=== PATIENT | male | born 1975 | race Caucasian/White ===

== ENCOUNTER → 2021-11-16 | Outpatient (CLI) | payer OTHER ==
[~2021-11-16] MED LIST: MELO15TA23 PO
--- NOTE | 2021-11-16 11:40 | PDOC1 ---
INITIAL PAIN CONSULT DATE OF SERVICE: DOS: DATE: 11/16/21 TIME: 11:33 CHIEF COMPLAINT: Chief Complaint: Low back and right lower extremity pain HISTORY OF PRESENT ILLNESS: 46-year-old male presents history of pain low back and right lower extremity for many years not the rules of any 1 specific injury or accident but multiple injuries over the years athletic injuries as well as injuries at work patient reports pain in the low back now worse over the past year he has had chiropractic treatment here recently and is also undergoing physical therapy currently which is helpful but only slightly patient reports pain is better for a day or 2 after the treatments and then he is back at baseline patient reports pain across the low back rating the right lower extremity posterior gluteus lateral thigh anterior thigh medial thigh medial lower leg and into the great toe on the right side patient reports is across the low back bilaterally and into the right leg described as constant sharp stabbing throbbing shooting tingling with numbness in the leg aching and cramping and burning keeping him from sleeping at night awakens him at least 2-3 times at night does not affect his bowel bladder control but does affect his ability to walk otherwise not use any assistive devices. 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 Patient has been doing stretching strengthening exercises at home as well as heat and massage therapies with pressure massage on the back and the right leg patient reports some fatigability of the right leg not with the left no dropfoot or loss of function but significant fatigability the right leg compared to left side with standing or walking even more than 10 to 15 minutes. Patient reports is better when he sits down but getting up from seated position can exacerbate pain as well and again disturbs sleep fairly frequently. Patient did have an MRI scan lumbar spine showing at L4-5 a narrow intervertebral disc with annular tear and central to right foraminal position without protrusion but with right neuroforaminal encroachment. Patient reports no bowel or bladder incontinence. PAST MEDICAL HISTORY: PMH: Arthritis, previous cigarette smoking PREVIOUS SURGERIES: Past Surgical Hx: Left rotator cuff repair, ear tubes, LASEK procedure CURRENT MEDICATIONS: Current Meds: Active Scripts Medications Dose Route/Sig Max Daily Dose Days Date Category Meloxicam 15 Mg Tablet 1 Tab PO DAILY 30 11/16/21 Reported ALLERGIES; Allergies: Coded Allergies: No Known Drug Allergies (Unverified , 11/16/21) FAMILY HISTORY: Family Hx: No major medical problems or conditions that he is aware of. 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 REVIEW OF SYSTEMS: ROS: Positive for those items mentioned in history of present illness, all systems are reviewed, otherwise negative ,and are complete full and well-documented on patient's chart. PHYSICAL EXAM: VS: Blood pressure is 143/106 pulse 84 respirations 16 temperature 97.9 F height is 5 feet 10 inches weight is 197 pounds. PE: PHYSICAL EXAMINATION: GENERAL: The patient is awake, alert, oriented, appropriate, very pleasant in demeanor HEENT: Shows normocephalic, atraumatic. Extraocular movements are intact and symmetrical. Full cao and mustache. Oral cavity: Mucous membranes moist and pink. Dentition is intact. NECK: Shows anterior throat supple without palpable lymphadenopathy noted. Swallow reflex symmetrical. CHEST: Shows normal on inspection. Breath sounds are clear bilaterally, no rales rhonchi or wheezes auscultated. HEART: Shows S1, S2 clear. No murmurs auscultated. ABDOMEN: Soft, nontender, nondistended. No palpable organomegaly is noted. BACK: Shows spine grossly in the midline. Normal-appearing cervical lordotic curvature. There is slightly increased thoracic kyphosis, some minor flattening of the lumbar lordotic curvature. Lumbar paraspinous muscles show symmetrical on inspection, on palpation shows some moderate tenderness diffusely throughout the upper, middle and lower distribution of the paraspinous muscles bilaterally and also into the lower thoracic paraspinous musculature, firm and tender, but without specific trigger points, without radiation of pain. The patient has good rotational motion of the lumbar spine, both laterally as well as extension and flexion without significant difficulty. No tenderness over the spinous processes, sacrum or sacroiliac regions. EXTREMITIES: Lower extremities show deep tendon reflexes 2+ in the patellar and tendo calcaneus tendons. Motor exam is 4 on a scale of 5 with right dorsiflexion, extension, quadriceps and hamstring flexion and 5/5 on the left. Peripheral pulses are 1+ posterior tibial. No peripheral edema is noted bilaterally. Lower extremities are warm and dry to touch, equal in color and appearance. Straight leg raise noted to be positive on the right about 45 d egrees, left side is negative. Gaenslen's and Tanner's maneuvers are negative bilaterally. The patient is able to stand, stand on his toes without significant difficulty loss of balance, walks with a normal-appearing gait not use any assistive devices to ambulate. SKIN: Shows warm and dry, good turgor. No edema. No sores, rashes or bruising throughout. IMPRESSION: Impression: 46-year-old male with long history low back right lower extremity pain in a radicular fashion following an L4-5 dermatomal distribution. MRI scan lumbar spine as noted Arthritis history Plan: Options were discussed the patient occluding conservative medical management continued physical therapies and interventional techniques. As patient is currently doing physical therapy also said chiropractic treatment is doing stretching strength exercise as well as heat massage therapies on his own and analgesics are limited improvement as well, patient would like to pursue interventional techniques. We discussed a lumbar epidural steroid injection using descriptions as well as anatomical models to describe the procedure. Patient wait for preauthorization with his insurance provider, once approved we will have him return for a translaminar approach L4-5 level lumbar epidural steroid injection with fluoroscopic guidance. In the meantime, patient will continue with stretching strength exercises maintain physical therapy schedule and oral analgesics as currently. BARBARA HOOKER MD Nov 16, 2021 11:40
== END | disposition home or self-care (01) ==
LOC: PNCL 10:14
PROVIDERS: ATTEND Anesthesiology
DX: M54.50 Low back pain, unspecified (principal); M79.604 Pain in right leg; M19.90 Unspecified osteoarthritis, unspecified site; Z87.891 Personal history of nicotine dependence; Z79.899 Other long term (current) drug therapy
CPT/HCPCS: 99214; G0463

== ENCOUNTER → 2021-11-30 | Outpatient (CLI) | payer OTHER ==
[~2021-11-30] MED LIST changes: +DEXAMETHASONE PRES.FREE 10 MG/ML VIAL. ONE; +IOHEXOL 180 MG/ML 10 ML VIAL. ONE
--- NOTE | 2021-11-30 11:51 | PDOC ---
Progress Note - Pain Clinic Date of Service: DOS: DATE: 11/30/21 TIME: 11:48 Diagnosis: Dx: Lumbar radiculopathy with lumbar degenerative disc disease History or Present Illness: HPI: 46-year-old male returns with complaints of low back and right lower extremity pain patient reports is worse with walking standing change positions now has a new pain of mid back and left-sided hip pain which is increasing and radiating into the posterior thigh and lateral thigh as well patient reports this came on without any specific injury or accident and his right leg is still more significantly tender with pain in the right leg posterior gluteus lateral thigh anterior thigh medial thigh medial lower leg as well as lateral lower leg into the foot patient reports aching sharp dull tight in the back shooting the legs, worse with walking standing changing positions better with sitting or laying down generally does not awaken her from sleep most nights. Patient rates the pain as 5 on a scale of 10 at its worst least and average over the last week and is a 5 today. Patient reports no bowel or bladder incontinence no loss of motor function with significant fatigability of the right leg with extended standing. Physical Exam: VS: Blood pressure is 143/96 pulse 74 respirations 18.9 F 9 inches weight 196 pounds. PE: PHYSICAL EXAMINATION: GENERAL: The patient is awake, alert, oriented, appropriate, very pleasant in demeanor HEENT: Shows normocephalic, atraumatic. Extraocular movements are intact and symmetrical. Full cao and mustache. Oral cavity: Mucous membranes moist and pink. Dentition is intact. NECK: Shows anterior throat supple without palpable lymphadenopathy noted. Swallow reflex symmetrical. CHEST: Shows normal on inspection. Breath sounds are clear bilaterally, no rales or rhonchi. HEART: Shows S1, S2 clear. No murmurs auscultated. ABDOMEN: Soft, nontender, nondistended. No palpable organomegaly is noted. BACK: Shows spine grossly in the midline. Normal-appearing cervical lordotic curvature. There is slightly increased thoracic kyphosis, some minor flattening of the lumbar lordotic curvature. Lumbar paraspinous muscles show symmetrical on inspection, on palpation shows some moderate tenderness diffusely throughout the upper, middle and lower distribution of the paraspinous muscles, but without specific trigger points, without radiation of pain. The patient has good rotational motion of the lumbar spine, both laterally as well as extension and flexion without significant difficulty. EXTREMITIES: Lower extremities show deep tendon reflexes 2+ in the patellar and tendo calcaneus tendons. Motor exam is 4 on a scale of 5 with right dorsiflexion, extension, quadriceps and hamstring flexion and 5/5 on the left. Peripheral pulses are 1+ posterior tibial. No peripheral edema is noted bilaterally. Lower extremities are warm and dry. SKIN: Shows warm and dry, good turgor. No edema. No sores, rashes or bruising throughout. Procedure: Procedure: Options were discussed with the patient. Patient old chart was reviewed, his current medication regimen updated, and current review of systems updated today as well. We will proceed with a lumbar epidural steroid injection today with fluoroscopic guidance. Risks were discussed including but not limited to: Bleeding, infection, possibility of epidural hematoma and subsequent neurol ogical compromise, dural puncture, headaches, spinal cord and/or nerve damage, side effects of steroid medication, and poor results regarding pain control. Patient understands and wished to proceed. Patient return to the clinic in approximately 2 weeks for follow-up, was counseled as to return appointment, activity level, and side effect to be aware of. Medication Injected: Med Injected: Procedure is lumbar epidural steroid injection under local anesthetic using sterile prep and drape at the L4-5 level using C-arm fluoroscopic guidance in both AP and lateral views medications injected is 20 mg dexamethasone +10mL preservative-free normal saline and 2 mL contrast- condition at discharge is stable patient tolerated procedure well had no complications. Condition at Discharge: Condition at Discharge: Condition at discharge stable, patient tolerated the procedure well and had no complications. BARBARA HOOKER MD Nov 30, 2021 11:51
--- NOTE | 2021-11-30 11:52 | PDOC4 ---
Procedure Note: ICD 10 Code: ICD 10 Code: M54.16 M51.36 Procedure Note: Patient was consented for lumbar epidural steroid injection with fluoroscopic guidance. Risks were discussed including but not limited to: Bleeding, infection, possibility of epidural hematoma and subsequent neurological compromise, dural puncture, headaches, spinal cord and/or nerve damage, side effects of steroid medication, and poor results regarding pain control. Patient understands and wished to proceed. Procedure is lumbar epidural steroid injection under local anesthetic using sterile prep and drape at the L4-5 level using C-arm fluoroscopic guidance in both AP and lateral views medications injected is 20 mg dexamethasone +10mL preservative-free normal saline and 2 mL contrast- condition at discharge is stable patient tolerated procedure well had no complications. BARBARA HOOKER MD Nov 30, 2021 11:52
== END | disposition home or self-care (01) ==
LOC: PNCL 11:03
PROVIDERS: ATTEND Anesthesiology
DX: M51.16 Intervertebral disc disorders with radiculopathy, lumbar region (principal); Z79.899 Other long term (current) drug therapy
CPT/HCPCS: 62323; J1100; Q9965

== ENCOUNTER → 2021-12-21 | Outpatient (CLI) | payer OTHER ==
[~2021-12-21] MED LIST changes: -DEXAMETHASONE PRES.FREE 10 MG/ML VIAL. ONE; -IOHEXOL 180 MG/ML 10 ML VIAL. ONE
--- NOTE | 2021-12-21 13:15 | PDOC ---
Progress Note - Pain Clinic Date of Service: DOS: DATE: 12/21/21 TIME: 13:10 Diagnosis: Dx: Lumbar radiculopathy with lumbar degenerative disc disease History or Present Illness: HPI: 46-year-old male returns for follow-up status post lumbar epidural steroid injection x1. Patient reports about 75% improvement initially pain in the low back and right lower extremity patient reports now is about 60% improved but still doing much better patient is very pleased with his progress he is increase his activity to greater ease and comfort and actually working he reports, more than he should have and is causing some of the pain to return but he was feeling so much better he wanted to get a lot of work done and may have overexerted himself slightly but overall doing much better patient reports still pain in the low back and the right lower extremity posterior gluteus posterior lateral thigh lateral anterior thigh anteromedial thigh medial lower leg into the ankle but much more tolerable patient is increase his activities distance walking doing household activities work activities taking much less oral analgesics than previously sleeping much better at night as well there is no longer waking him from sleep patient reports pain is a 5-6 on scale 10 is worst 3-4 on average 1-2 at its least and is a 3 today patient describes as aching and dull in the back tight and shooting in the right lower extremity burning and cramping as well some radiating pain can be constant with extended standing walking bending but otherwise doing much better. Patient reports no bowel or bladder incontinence. Patient continues with stretching strengthening exercises and physical therapy routine exercises also on his own. Physical Exam: VS: Blood pressure is 135/95 pulse 87 respirations 16 temperature 98.3 F height is 5 foot 10 inches weight is 192 pounds. PE: PHYSICAL EXAMINATION: GENERAL: The patient is awake, alert, oriented, appropriate, very pleasant in demeanor HEENT: Shows normocephalic, atraumatic. Extraocular movements are intact and symmetrical. Oral cavity: Mucous membranes moist and pink. Dentition is intact. NECK: Shows anterior throat supple without palpable lymphadenopathy noted. Swallow reflex symmetrical. CHEST: Shows normal on inspection. Breath sounds are clear bilaterally, no rales or rhonchi. HEART: Shows S1, S2 clear. No murmurs auscultated. ABDOMEN: Soft, nontender, nondistended. No palpable organomegaly is noted. BACK: Shows spine grossly in the midline. Normal-appearing cervical lordotic curvature. There is slightly increased thoracic kyphosis, some minor flattening of the lumbar lordotic curvature. Lumbar paraspinous muscles show symmetrical on inspection, on palpation shows some moderate tenderness diffusely throughout the upper, middle and lower distribution of the paraspinous muscles without specific trigger points, without radiation of pain. The patient has good rotational motion of the lumbar spine, both laterally as well as extension and flexion without significant difficulty. EXTREMITIES: Lower extremities show deep tendon reflexes 2+ in the patellar and tendo calcaneus tendons. Motor exam is 4 on a scale of 5 with right dorsiflexion, extension, quadriceps and hamstring flexion and 5/5 on the left. Peripheral pulses are 1+ posterior tibial. No peripheral edema is noted bilaterally. Lower extremities are warm and dry to touch, equal in color and appearance. SKIN: Shows warm and dry, good turgor. No edema. No sores, rashes or bruising throughout. Procedure: Procedure: Options were discussed with patient. Patient's old chart was reviewed as his current medication regimen updated current review of systems updated today as well. Patient is doing much better but still has clinical radiculopathy on the right leg in an L4-5 dermatomal distribution, we will preauthorize patient for a conditional lumbar epidural steroid injection. Once approved patient will return for lumbar epidural steroid injection at the L4-5 level translaminar approach with fluoroscopic guidance. Meantime patient continue with stretching strength exercises physical therapy routine exercise as well as oral analgesics as necessary. Medication Injected: Med Injected: None Condition at Discharge: Condition at Discharge: Condition at discharge is stable. BARBARA HOOKER MD Dec 21, 2021 13:15
== END | disposition home or self-care (01) ==
LOC: PNCL 11:30
PROVIDERS: ATTEND Anesthesiology
DX: M51.16 Intervertebral disc disorders with radiculopathy, lumbar region (principal); Z79.899 Other long term (current) drug therapy
CPT/HCPCS: 99212; G0463

== ENCOUNTER → 2022-01-04 | Outpatient (CLI) | payer OTHER ==
[~2022-01-04] MED LIST changes: +DEXAMETHASONE PRES.FREE 10 MG/ML VIAL. ONE; +IOHEXOL 180 MG/ML 10 ML VIAL. ONE
--- NOTE | 2022-01-04 09:42 | PDOC ---
Progress Note - Pain Clinic Date of Service: DOS: DATE: 01/04/22 TIME: 09:38 Diagnosis: Dx: Lumbar radiculopathy with lumbar degenerative disc disease History or Present Illness: HPI: 46-year-old male returns for follow-up status post lumbar epidural steroid injection x1 with 60% improvement overall with pain low back and right lower extremity patient reports pain is returning in the low back right lower extremity posterior gluteus posterior lateral thigh lateral anterior thigh anteromedial thigh medial lower leg into the calf as well posteriorly on the right side patient reports is worse with walking standing changing positions bending or stooping reports is aching and sharp dull in the back tight and shooting in the leg on the right side with tingling and burning as well as some cramping in the back as well at times with extended standing or walking patient reports it is a 6-7 on scale 10 is worse over the past week 3-4 on average 2-3 at its least and is a 5 today. Patient reports no bowel or bladder incontinence no loss of motor function but significant fatigability in the right lower extremity with activity. Physical Exam: VS: Blood pressure is 144/102 pulse 69 respirations 18 temperature 98.1 F height is 5 feet 10 inches weight is 193 pounds PE: PHYSICAL EXAMINATION: GENERAL: The patient is awake, alert, oriented, appropriate, very pleasant in demeanor HEENT: Shows normocephalic, atraumatic. Extraocular movements are intact and symmetrical. Oral cavity: Mucous membranes moist and pink. Dentition is intact. NECK: Shows anterior throat supple without palpable lymphadenopathy noted. Swallow reflex symmetrical. CHEST: Shows normal on inspection. Breath sounds are clear bilaterally, no rales rhonchi wheezes auscultated. HEART: Shows S1, S2 clear. No murmurs auscultated. ABDOMEN: Soft, nontender, nondistended. No palpable organomegaly is noted. BACK: Shows spine grossly in the midline. Normal-appearing cervical lordotic curvature. There is slightly increased thoracic kyphosis, some flattening of the lumbar lordotic curvature. Lumbar paraspinous muscles show symmetrical on inspection, on palpation shows some moderate tenderness diffusely throughout the upper, middle and lower distribution of the paraspinous muscles,without specific trigger points, without radiation of pain. The patient has good rotational motion of the lumbar spine, both laterally as well as extension and flexion without significant difficulty. No tenderness over the spinous processes, sacrum or sacroiliac regions. EXTREMITIES: Lower extremities show deep tendon reflexes 2+ in the patellar and tendo calcaneus tendons. Motor exam is 4 on a scale of 5 with right dorsiflexion, extension, quadriceps and hamstring flexion and 5/5 on the left. Peripheral pulses are 1+ posterior tibial. No peripheral edema is noted bilaterally. Lower extremities are warm and dry. SKIN: Shows warm and dry, good turgor. No edema. No sores, rashes or bruising throughout. Procedure: Procedure: Options were discussed with the patient. Patient old chart was reviewed as well as his current medication regimen updated, and current review of systems updated today as well. We will proceed with a lumbar epidural steroid injection today with fluoroscopic guidance. Risks were discussed including but not limited to: Bleeding, infection, possibility of epidural hematoma and subsequent neurological compromise, dural puncture, headaches, spinal cord and/or nerve damage, side effects of steroid medication, and poor results regarding pain control. Patient understands and wished to proceed. Patient will return to the clinic in approximately 2 weeks for follow-up, was counseled as to return appointment, activity level, and side effect to be aware of. Medication Injected: Med Injected: Procedure is lumbar epidural steroid injection under local anesthetic using sterile prep and drape at the L4-5 level using C-arm fluoroscopic guidance in both AP and lateral views medications injected is 20 mg dexamethasone +10mL preservative-free normal saline and 2 mL contrast- condition at discharge is stable patient tolerated procedure well had no complications. Condition at Discharge: Condition at Discharge: Condition at discharge is stable, patient Christina the procedure well and had no complications. BARBARA HOOKER MD Jan 04, 2022 09:42
--- NOTE | 2022-01-04 09:42 | PDOC4 ---
Procedure Note: ICD 10 Code: ICD 10 Code: M54.16 M51.36 Procedure Note: Patient was consented for lumbar epidural steroid injection with fluoroscopic guidance. Risks were discussed including but not limited to: Bleeding, infection, possibility of epidural hematoma and subsequent neurological compromise, dural puncture, headaches, spinal cord and/or nerve damage, side effects of steroid medication, and poor results regarding pain control. Patient understands and wished to proceed. Procedure is lumbar epidural steroid injection under local anesthetic using sterile prep and drape at the L4-5 level using C-arm fluoroscopic guidance in both AP and lateral views medications injected is 20 mg dexamethasone +10mL preservative-free normal saline and 2 mL contrast- condition at discharge is stable patient tolerated procedure well had no complications. BARBARA HOOKER MD Jan 04, 2022 09:42
== END | disposition home or self-care (01) ==
LOC: PNCL 08:35
PROVIDERS: ATTEND Anesthesiology
DX: M51.16 Intervertebral disc disorders with radiculopathy, lumbar region (principal); Z79.899 Other long term (current) drug therapy
CPT/HCPCS: 62323; J1100; Q9965; 64483

== ENCOUNTER → 2022-01-18 | Outpatient (CLI) | payer OTHER ==
[~2022-01-18] MED LIST changes: -DEXAMETHASONE PRES.FREE 10 MG/ML VIAL. ONE; -IOHEXOL 180 MG/ML 10 ML VIAL. ONE
--- NOTE | 2022-01-18 09:46 | PDOC ---
Progress Note - Pain Clinic Date of Service: DOS: DATE: 01/18/22 TIME: 09:43 Diagnosis: Dx: Lumbar radiculopathy with lumbar degenerative disc disease History or Present Illness: HPI: 46-year-old male returns in follow-up status post lumbar epidural steroid injection x2. Patient reports did very well with about a 70% improvement initially in the pain but low back and right lower extremity patient reports he has been increase his activity to greater ease and comfort doing his work duties with much greater ease walking doing household activities travel with greater ease and comfort and reports his quality of life is improved significantly. Patient reports he is not using oral analgesics nearly as often has meloxicam but not taking it every day because the pain has been reduced significantly. Patient reports is still helping but he still having some pain in the low back and right lower extremity posterior gluteus posterior thigh lateral thigh into thigh medial thigh medial lower leg on the right side left side is still signi ficantly improved patient reports the pain is sharp and dull in the back tight tingling burning can be stabbing in the low back and stabbing in the leg on and off in intensity worse with activity changing positions bending stooping and standing. Patient reports his ability to sleep is much better and sleeps well most nights without awakening him from sleep. Patient rates his pain a 6-7 on a scale of 10 at its worst 2-3 on average to its least and is a 2 today. Patient reports no bowel or bladder incontinence. Patient reports no loss of motor function but significant fatigability of the right lower extremity with activity and standing. Physical Exam: VS: Blood pressure is 130/92 pulse 73 respirations are 16 temperature 90.6 percent 5 feet 10 inches weight is 194 pounds. PE: PHYSICAL EXAMINATION: GENERAL: The patient is awake, alert, oriented, appropriate, very pleasant in demeanor HEENT: Shows normocephalic, atraumatic. Extraocular movements are intact and symmetrical. Oral cavity: Mucous membranes moist and pink. Dentition is intact. NECK: Shows anterior throat supple without palpable lymphadenopathy noted. Swallow reflex symmetrical. CHEST: Shows normal on inspection. Breath sounds are clear bilaterally. HEART: Shows S1, S2 clear. No murmurs auscultated. ABDOMEN: Soft, nontender, nondistended. No palpable organomegaly is noted. BACK: Shows spine grossly in the midline. Normal-appearing cervical lordotic curvature. There is slightly increased thoracic kyphosis, some minor flattening of the lumbar lordotic curvature. Lumbar paraspinous muscles show symmetrical on inspection, on palpation shows some moderate tenderness diffusely throughout the upper, middle and lower distribution of the paraspinous muscles without specific trigger points, without radiation of pain. The patient has good rotational motion of the lumbar spine, both laterally as well as extension and flexion without significant difficulty. EXTREMITIES: Lower extremities show deep tendon reflexes 2+ in the patellar and tendo calcaneus tendons. Motor exam is 4 on a scale of 5 with right dorsiflexion, extension, quadriceps and hamstring flexion and 5/5 on the left. Peripheral pulses are 1+ posterior tibial. No peripheral edema is noted bilaterally. Lower extremities are warm and dry to touch, equal in color and appearance. SKIN: Shows warm and dry, good turgor. No edema. No sores, rashes or bruising throughout. Procedure: Procedure: Options were discussed with patient. Patient's old chart was reviewed his his current medication regimen updated current review of systems updated today as well. Patient is doing significantly better but still with radicular pain in L4-5 dermatomal distribution of the right lower extremity, we will preauthorize patient for a lumbar epidural steroid injection with fluoroscopic guidance. Patient will continue with stretching strength exercises as well as inversion table use at home and oral analgesics as currently in the meantime. Once approved, patient will return for L4-5 translaminar approach lumbar epidural steroid injection with fluoroscopic guidance. Medication Injected: Med Injected: None Condition at Discharge: Condition at Discharge: Condition at discharge is stable. BARBARA HOOKER MD Jan 18, 2022 09:46
== END | disposition home or self-care (01) ==
LOC: PNCL 08:46
PROVIDERS: ATTEND Anesthesiology
DX: M51.16 Intervertebral disc disorders with radiculopathy, lumbar region (principal); Z79.899 Other long term (current) drug therapy
CPT/HCPCS: 99212; G0463

== ENCOUNTER → 2022-02-15 | Outpatient (CLI) | payer OTHER ==
[~2022-02-15] MED LIST changes: +IOHEXOL 180 MG/ML 10 ML VIAL. ONE
--- NOTE | 2022-02-15 08:58 | PDOC ---
Progress Note - Pain Clinic Date of Service: DOS: DATE: 02/15/22 TIME: 08:55 Diagnosis: Dx: Lumbar radiculopathy with lumbar degenerative disc disease History or Present Illness: HPI: 46-year-old male returns for follow-up status post lumbar epidural steroid injection last seen in January 18, 2022 patient did very well with improvement by about 70% overall patient reports it "keeps getting better" he is recently had some time off work and his back is felt much better when he is not doing as much physical labor patient reports his pain is a 6-7 on scale 10 is worse over the past week 2-3 on average 1-2 to [place] is a 3 today patient reports aching s harp tight shooting tingling and burning stabbing in the back radiating shooting in the right lower extremity posterior gluteus posterior lateral thigh lateral anterior thigh anteromedial thigh medial lower leg into the calf as well patient reports is worse with walking standing changing positions better with sitting or laying down he did much worse in the morning once he gets up and around he does some stretching before he gets out of bed the pain is decreased fairly significantly. Patient reports generally does not awaken from sleep at night and is better with sitting or laying down. Patient reports no bowel or bladder incontinence no loss of motor function some mild fatigability the right lower extremity with ambulation. Physical Exam: VS: Blood pressure is 140/99 pulse 64 respirations 18 temperature is 97.9 F weight is 192 pounds. PE: PHYSICAL EXAMINATION: GENERAL: The patient is awake, alert, oriented, appropriate, very pleasant in demeanor HEENT: Shows normocephalic, atraumatic. Extraocular movements are intact and symmetrical. Oral cavity: Mucous membranes moist and pink. NECK: Shows anterior throat supple without palpable lymphadenopathy noted. Swallow reflex symmetrical. CHEST: Shows normal on inspection. Breath sounds are clear bilaterally. HEART: Shows S1, S2 clear. No murmurs auscultated. ABDOMEN: Soft, nontender, nondistended. No palpable organomegaly is noted. BACK: Shows spine grossly in the midline. Normal-appearing cervical lordotic curvature. There is mildly increased thoracic kyphosis, some minor flattening of the lumbar lordotic curvature. Lumbar paraspinous muscles show symmetrical on inspection, on palpation shows some moderate tenderness diffusely throughout the upper, middle and lower distribution of the paraspinous muscles without specific trigger points, without radiation of pain. The patient has good rotational motion of the lumbar spine, both laterally as well as extension and flexion without significant difficulty. EXTREMITIES: Lower extremities show deep tendon reflexes 2+ in the patellar and tendo calcaneus tendons. Motor exam is 4 on a scale of 5 with right dorsiflexion, extension, quadriceps and hamstring flexion and 5/5 on the left. Peripheral pulses are 1+ posterior tibial. No peripheral edema is noted bilaterally. Lower extremities are warm and dry to touch, equal in color and a ppearance. SKIN: Shows warm and dry, good turgor. No edema. No sores, rashes or bruising throughout. Procedure: Procedure: Options discussed with patient. Patient's old chart was reviewed his his current medication regimen updated current review of systems updated today as well. We will proceed with a lumbar epidural steroid injection today with fluoroscopic guidance. Risks were discussed including but not limited to: Bleeding, infection, possibility of epidural hematoma and subsequent neurological compromise, dural puncture, headaches, spinal cord and/or nerve damage, side effects of steroid medication, and poor results regarding pain control. Patient understands and wished to proceed. Patient will return to the clinic in approximately 2 weeks for follow-up, was counseled as return appointment, active level, and side effects to be aware of. Medication Injected: Med Injected: Procedure is lumbar epidural steroid injection under local anesthetic using sterile prep and drape at the L4-5 level using C-arm fluoroscopic guidance in both AP and lateral views medications injected is 20 mg dexamethasone +10mL preservative-free normal saline and 2 mL contrast- condition at discharge is stable patient tolerated procedure well had no complications. Condition at Discharge: Condition at Discharge: Condition at discharge is stable, patient tolerated procedure well had no complications. BARBARA HOOKER MD February 15, 2022 08:58
--- NOTE | 2022-02-15 08:58 | PDOC4 ---
Procedure Note: ICD 10 Code: ICD 10 Code: M54.16 M51.36 Procedure Note: Patient was consented for lumbar epidural steroid injection with fluoroscopic guidance. Risks were discussed including but not limited to: Bleeding, infection, possibility of epidural hematoma and subsequent neurological compromise, dural puncture, headaches, spinal cord and/or nerve damage, side effects of steroid medication, and poor results regarding pain control. Patient understands and wished to proceed. Procedure is lumbar epidural steroid injection under local anesthetic using sterile prep and drape at the L4-5 level using C-arm fluoroscopic guidance in both AP and lateral views medications injected is 20 mg dexamethasone +10mL preservative-free normal saline and 2 mL contrast- condition at discharge is stable patient tolerated procedure well had no complications. BARBARA HOOKER MD February 15, 2022 08:58
== END | disposition home or self-care (01) ==
LOC: PNCL 08:06
PROVIDERS: ATTEND Anesthesiology
DX: M51.16 Intervertebral disc disorders with radiculopathy, lumbar region (principal); Z79.899 Other long term (current) drug therapy
CPT/HCPCS: 62323; Q9965